=== PATIENT | female | born 1995 | race Caucasian/White ===

== ENCOUNTER 2021-07-21 10:26 | Outpatient (CLI) | payer BC, MEDICAID, SELFPAY ==
--- NOTE | ~2021-07-21 | US_ITS ---
EXAMINATION: US OB <= 14 weeks fetus DATE: 07/21/2021 16:17 INDICATION: Maternal care for suspected poor growth. TECHNIQUE: Real-time transabdominal pelvic ultrasound was performed. COMPARISON: None. FINDINGS: The uterus measures 11.5 x 8.7 x 7.4 cm. There is an intrauterine gestational sac. The crown ru mp length measures 6.4 cm, which correlates with an estimated gestational age of 12 weeks and 5 day(s ) (+/-) 1 week(s) and 1 day(s). heart motion is identified measuring 161 beats per minute (bpm) by M-mode Doppler. The right ovary measures 3.9 x 2.8 x 1.2 cm. The left ovary is not visualized. Th ere is no free fluid in the pelvis. IMPRESSION: 1. Single living intrauterine gestation with estimated date of delivery of 01/28/2022. Reviewed, dictated and finalized at location A. IMPRESSION: 1. Single living intrauterine gestation with estimated date of delivery of 01/16.
== END 2021-07-21 10:27 | disposition home or self-care (01) ==
PROVIDERS: PCP Internal Medicine; Visit Provider Nurse Practitioner Women's Health
DX: Z34.91 Encounter for supervision of normal pregnancy, unspecified, first trimester (principal); Z3A.01 Less than 8 weeks gestation of pregnancy
CPT/HCPCS: 76801

== ENCOUNTER 2023-02-15 12:50 | Outpatient (CLI) | payer OTHER, MEDICAID, SELFPAY ==
--- NOTE | ~2023-02-15 | US_ITS ---
EXAMINATION: US OB follow up DATE: 02/15/2023 13:36 INDICATION: growth assessment during second trimester TECHNIQUE: Real-time ultrasound of the pelvis was performed. The interpreting radiologist was not pre sent for the study. COMPARISON: None. FINDINGS: There is a single living fetus in breech presentation. The placenta is anterior and 5 cm fr om the internal cervical os. cardiac activity and movement are noted. heart rate is 148 beats per minute (bpm). The amniotic fluid index is subjectively normal. The following biometric data were obtained: Biparietal diameter (BPD): 3.8 cm; head circumference (HC): 12.5 cm; abdominal circumference (AC): 11 .1 cm; femur length (FL): 1.9 cm. These measurements are concordant. Estimated weight is 154 g +/- 23 g, which correlates with the 76th percentile when 08/03/2023 is used as estimated date of delivery. As single measurements, these parameters are each equal to the following estimated gestational ages w ith ranges of +/- 2 standard deviations: BPD: 17 weeks 3 days +/- 1 weeks 1 days. HC: 16 weeks 2 days +/- 1 weeks 1 days. AC: 17 weeks 0 days +/- 1 weeks 5 days. FL: 15 weeks 5 days +/- 1 weeks 3 days. estimated gestational age based solely on measurements from this exam is 16 weeks 4 days +/- 1 weeks 1 days. IMPRESSION: 1. Single living fetus in breech presentation. 2. Estimated weight is 154 g +/- 23 g, which correlates with the 76th percentile when 08/03/2023 is used as estimated date of delivery. Reviewed, dictated and finalized at location F. IMPRESSION: 1. Single living fetus in breech presentation. 2. Estimated weight is 154 g +/- 23 g, which correlates with the 76th per centile when 08/03/2023 is used as estimated date of delivery.
== END 2023-02-15 12:51 | disposition home or self-care (01) ==
PROVIDERS: PCP Hospitalist; Visit Provider Obstetrics & Gynecology
DX: Z34.92 Encounter for supervision of normal pregnancy, unspecified, second trimester (principal); Z3A.16 16 weeks gestation of pregnancy
CPT/HCPCS: 76816